=== PATIENT | male | born 1970 | race Caucasian/White ===

== ENCOUNTER → 2018-08-27 | Outpatient (CLI) | payer OTHER ==
[2018-08-27 14:04] LABS: ABSOLUTE EOSINOPHILS 0.1 thou/uL (0.0-0.7); ABSOLUTE LYMPHOCYTES 1.1 thou/uL (0.8-5.3); ABSOLUTE MONOCYTES 0.6 thou/uL (0.0-1.2); ABSOLUTE NEUTROPHILS 4.2 thou/uL (1.6-8.1); BASOPHILS 0.4 %; HEMATOCRIT 45.7 % (42.0-52.0); HEMOGLOBIN 15.6 gm/dL (14.0-18.0); LYMPHOCYTES 18.1 %; MCHC 34.2 g/dL (28.0-37.0); MCV 87.7 fL (80.0-100.0); MONOCYTES 9.5 %; MPV 8.7 fl. (7.2-11.1); NUCLEATED RBCS 0 /100WBC; PLATELET COUNT* 161 thou/uL (150-400); RBC 5.22 mil/uL (4.50-6.00); RDW-CV 14.7 % (10.5-14.5); WBC 5.9 thou/uL (4.0-11.0)
[2018-08-27 14:24] LABS: ALBUMIN 3.8 g/dL (3.4-5.0); CALCIUM 9.9 mg/dL (8.5-10.1); CREATININE 1.3 mg/dL (0.6-1.3); POTASSIUM 4.3 mmol/L (3.5-5.1); TOTAL BILIRUBIN 0.9 mg/dL (<0.1-1.0); TOTAL PROTEIN 8.7 g/dL (6.4-8.2)
== END ==
LOC: M.CT 12:45
PROVIDERS: Internal Medicine
DX: I31.3 Pericardial effusion (noninflammatory) (principal); R10.31 Right lower quadrant pain; R19.00 Intra-abdominal and pelvic swelling, mass and lump, unspecified site

== ENCOUNTER → 2019-06-14 | Outpatient (CLI) | payer OTHER ==
--- NOTE | 2019-06-14 12:54 | 2DMMODE ---
[place] [address] 2 D/M-MODE ECHOCARDIOGRAM Name: CHAGO GODFREY Room: [facility]#: [id number] Admission: 06/14/19 Attend Phys: Roberth Wisdom, Discharge: Date of : 68 Date of Service: 06/14/19 1254 Report #: [id number] THIS REPORT FOR: //name// APPROVED REPORT Study performed: 06/14/2019 10:55:05 EXAM: Comprehensive 2D, Doppler, and color-flow Echocardiogram Patient Location: Out-Patient BSA: 2.15 HR: 77 bpm BP: 141/99 mmHg Other Information Study Quality: Good Indications Dyspnea 2D Dimensions IVSd: 12.99 (7-11mm) LVOT Diam: 20.64 (18-24mm) LVDd: 49.18 mm PWd: 13.01 (7-11mm) Ascending Ao: 31.46 (22-36mm) LVDs: 26.74 (25-40mm) Aortic Root: 35.43 mm Volumes Left Atrial Volume (Systole) LA ESV Index: 12.10 mL/m2 Aortic Valve AoV Peak Sundeep.: 1.05 m/s AO Peak Gr.: 4.42 mmHg LVOT Max P.31 mmHg AO Mean Gr.: 2.42 mmHg LVOT Mean P.57 mmHg LVOT Max V: 0.91 m/s AO V2 VTI: 19.52 cm LVOT Mean V: 0.57 m/s HUEY (VTI): 3.14 cm2 LVOT V1 VTI: 18.33 cm Mitral Valve E/A Ratio: 1.13 MV Decel. Time: 176.12 ms MV E Max Sundeep.: 0.86 m/s MV PHT: 51.07 ms MVA (PHT): 4.31 [place]2 [place] [address] 2 D/M-MODE ECHOCARDIOGRAM Name: CHAGO GODFREY Room: [facility]#: [id number] Admission: 06/14/19 Attend Phys: Roberth Wisdom, Discharge: Date of : 68 Date of Service: 06/14/19 1254 Report #: [id number] TDI E/Lateral E': 8.60 E/Medial E': 10.75 Medial E' Sundeep.: 0.08 m/s Lateral E' Sundeep.: 0.10 m/s Pulmonary Valve PV Peak Sundeep.: 0.68 m/s PV Peak Gr.: 1.86 mmHg Left Ventricle The left ventricle is normal size. There is normal LV segmental wall motion. Mild concentric left ventricular hypertrophy. Left ventricular systolic function is normal. LVEF is 55-60%. Transmitral Doppler flow pattern suggests impaired LV relaxation. Right Ventricle The right ventricle is normal size. The right ventricular systolic function is normal. Atria The left atrium size is normal. The right atrium size is normal. Aortic Valve The aortic valve is normal in structure. No aortic regurgitation is present. There is no aortic valvular stenosis. Mitral Valve The mitral valve is normal in structure. There is no mitral valve regurgitation noted. No evidence of mitral valve stenosis. Tricuspid Valve The tricuspid valve is normal in structure. There is no tricuspid valve regurgitation noted. Pulmonic Valve The pulmonary valve is normal in structure. Mild pulmonic regurgitation. Great Vessels The aortic root is normal in size. IVC is normal in size and collapses >50% with inspiration. Pericardium There is a small circumferential pericardial effusion noted. There is no evidence [place] [address] 2 D/M-MODE ECHOCARDIOGRAM Name: CHAGO GODFREY Room: [facility]#: [id number] Admission: 06/14/19 Attend Phys: Roberth Wisdom, Discharge: Date of : 68 Date of Service: 06/14/19 1254 Report #: [id number] tamponade. <Conclusion> The left ventricle is normal size. Mild concentric left ventricular hypertrophy. Left ventricular systolic function is normal. LVEF is 55-60%. Transmitral Doppler flow pattern suggests impaired LV relaxation. Mild pulmonic regurgitation. IVC is normal in size and collapses >50% with inspiration. There is a small circumferential pericardial effusion noted. There is no evidence of hemodynamic compromise or tamponade. <ELECTRONICALLY SIGNED> By: Chago Ag MD, FACC 06/14/19 1254 1254 1254 Chago Ag MD, FACC /INF
--- NOTE | 2019-06-14 13:08 | CARDNUC ---
[place] [address] CARDIAC NUCLEAR IMAGING REPORT Name: CHAGO GODFREY Room: [facility]#: [id number] Admission: 06/14/19 Attend Phys: Roberth Wisdom, Discharge: Date of : 68 Date of Service: 06/14/19 1308 Report #: [id number] THIS REPORT FOR: //name// APPROVED REPORT Study performed: 06/14/2019 09:25:38 Exam: Nuclear Stress Test Indication: Dyspnea Patient Location: Out-Patient Stress Tech: Wilton Snyder Stress Nurse: Hina Galan RN NM Tech:DUSTIN Amador Ht: 5 ft 9 in Wt: 220 lbs BSA: 2.15 m2 BMI: 32.48 Medical History Medical History: Fatigue, SOB, decreased exercise tolerance. Medications: No Cardiac Meds Allergies: No known drug allergies Cardiac Risk Factors: Age, FHX of CAD, SOB. Previous Cardiac Procedures: None Pretest Chest Pain Characteristics: No chest pain Exercise History: Indeterminate Physical Disabilities: None Meds Held (24 hrs): None Stress Test Details Stress Test: Exercise stress testing was performed using a Abel protocol. HR Resting HR: 77 bpm Max Heart Rate (APMHR): 170 bpm Max HR Achieved: 167 bpm Target HR (85% APMHR): 144 bpm % of APMHR: 98 Recovery HR: 101 bpm BP Resting BP: 141/99 mmHg Max BP: 218/97 mmHg ECG Resting ECG: Sinus Rhythm Stress ECG: [place] [address] CARDIAC NUCLEAR IMAGING REPORT Name: CHAGO GODFREY Room: [facility]#: [id number] Admission: 06/14/19 Attend Phys: Roberth Wisdom, Discharge: Date of : 68 Date of Service: 06/14/19 1308 Report #: [id number] Change: None Arrhythmia: None Recovery ECG: Sinus Rhythm Recovery ST Change: None Recovery Arrhythmia: None Clinical Reason for Termination: Maximal effort, Completed protocol. Stress Symptoms: Leg Fatigue, Dyspnea. Exercise duration: 10 min 28 sec Exercise capacity: 12.65 METs Overall Exercise Capacity for Age: Normal The patient tolerates due to breathing critical exercise without significant cardiac complaints. Nurse Comments A 49 year old male presented for Abel Protocol Nuclear Stress Test for decreased exercise tolerance, fatigue, and Dyspnea. Treadmill well tolerated. Recovery was extended r/t HR remaining above 100 BPM. Patient stated he felt good, breathing was normal, LCTAB. Patient was escorted by staff to Nuclear Medicine for images. Patient reaffirmed that he felt good, B/P was stable and end of recovery. Stress ECG Conclusion The baseline 12-lead EKG show sinus rhythm without significant ST or T wave abnormality. EKGs obtained during and post exercise showed sinus rhythm and sinus tachycardia with no significant ST or T wave changes when compared baseline. There were no stress-induced arrhythmias. NM EXAM: Myocardial Perfusion REST/STRESS Imaging Protocol: Rest Tc-99m/Stress Tc-99m 1 day Resting Data Rest SPECT myocardial perfusion imaging was performed in supine position 30 minutes following the intravenous injection of 11.8 mCi of Tc-99m Sestamibi. Time of rest injection: 0800 Date: 06/14/2019 The images were gated to evaluate regional wall motion and calculate left ventricular ejection fraction. Administration Route: IV Administration Site: Right Hand Exercise Stress At peak stress, the patient was injected intravenously with 35.8mCi of Tc-99m [place] [address] CARDIAC NUCLEAR IMAGING REPORT Name: CHAGO GODFREY Room: [facility]#: [id number] Admission: 06/14/19 Attend Phys: Roberth Wisdom, Discharge: Date of : 68 Date of Service: 06/14/19 1308 Report #: [id number] Time of stress injection: 934 Date: 06/14/2019 Administration Route: IV Administration Site: Right Hand Gated Stress SPECT was performed 30 minutes after stress injection. The images were gated to evaluate regional wall motion and calculate left ventricular ejection fraction. Prone imaging was performed. Study Quality Study: Good Artifact: No artifact Study Data At rest, the left ventricular ejection fraction was 59%.. Post stress, the left ventricular ejection was 65%.. TID = 0.82. Perfusion Myocardial perfusion images show uniform uptake of the radioisotope throughout the myocardium without defect on both rest and stress images. Wall Motion Normal left ventricular wall motion. Nuclear Conclusion ECG Findings: negative for ischemia Clinical Findings: negative for ischemia Nuclear Findings: negative for ischemia Exercise Capacity: normal Left Ventricular Function: normal Risk Study: low Myocardial perfusion images show no defect to suggest infarct or ischemia. Left ventricular systolic function is normal on gated studies. This is a low risk study. <Conclusion> The baseline 12-lead EKG show sinus rhythm without significant ST or T wave abnormality. EKGs obtained during and post exercise showed sinus rhythm and sinus tachycardia with no significant ST [place] [address] CARDIAC NUCLEAR IMAGING REPORT Name: CHAGO GODFREY Room: [facility]#: [id number] Admission: 06/14/19 Attend Phys: Roberth Wisdom, Discharge: Date of : 68 Date of Service: 06/14/19 1308 Report #: [id number] changes when compared baseline. There were no stress-induced arrhythmias. <ELECTRONICALLY SIGNED> By: Chago Ag MD, [facility] 06/14/19 1308 1308 1308 Chago Ag MD, FACC /INF
== END ==
LOC: M.NUC 05-24 17:13
DX: I37.1 Nonrheumatic pulmonary valve insufficiency (principal); R00.0 Tachycardia, unspecified; R06.02 Shortness of breath; R06.00 Dyspnea, unspecified; R53.83 Other fatigue; I25.10 Atherosclerotic heart disease of native coronary artery without angina pectoris

== ENCOUNTER → 2019-08-03 | Outpatient (CLI) | payer OTHER | LOC: M.ULTRA 07:47 | DX: K11.1 Hypertrophy of salivary gland (principal); J45.40 Moderate persistent asthma, uncomplicated ==